=== PATIENT | male | born 1985 | race Caucasian/White ===

== ENCOUNTER 2016-11-30 14:52 | Emergency (ER) | payer OTHER ==
--- NOTE | 2016-12-18 08:17 | ER ---
ADMIT: 11/30/2016 RM/LOC: ER [facility] MR#: [id number] [address] [id number] NICOLE SOSA [address] [place] [address] Emergency Room Report SEX: M AGE: 31 : 1985 DATE: 11/30/2016 ADDENDUM: This patient comes to the ER because he is having back pain. He was lifting something heavy at work and he does a lot of bending, felt his back pull and now it has gotten increasingly worse today that he has difficulty getting in and out of sitting position. On physical exam, he does have difficulty getting in and out of sitting position and the pain seems to be on his low back but more to the right side. He does ambulate. Pulses are equal bilaterally in the lower extremities. Capillary refill is normal. DIAGNOSIS: Lower lumbar strain. He was given Valium and Toradol in the ER. I wrote a prescription for [place] and Valium and a note for work to decrease lifting for 4 days. Please see my T-sheet. HANNAH Magdaleno / Christian Henson MD / lester JOB #: [id number] CC: Christian Henson MD, Attending Physician Misael Marcial MD, Family Physician
== END 2016-11-30 16:01 | disposition home or self-care (01) ==
LOC: ER 14:52
DX: S33.5XXA Sprain of ligaments of lumbar spine, initial encounter (principal); X50.0XXA Overexertion from strenuous movement or load, initial encounter; Y92.69 Other specified industrial and construction area as the place of occurrence of the external cause; F17.210 Nicotine dependence, cigarettes, uncomplicated; Z98.890 Other specified postprocedural states; Z79.899 Other long term (current) drug therapy